=== PATIENT | female | born 1985 | race Caucasian/White ===

== ENCOUNTER 2017-02-11 22:04 | Emergency (ER) | payer MEDICAID ==
[~2017-02-11] VITALS: Ht 157.5 cm; Wt 65.8 kg
[2017-02-11 22:26] VITALS: BP 147/90
[2017-02-12] MEDS: IBUPROFEN 600 MG TAB PO ONE (00:08)
== END 2017-02-12 00:26 | disposition home or self-care (01) ==
LOC: ER 22:06
DX: S13.9XXA Sprain of joints and ligaments of unspecified parts of neck, initial encounter (principal); M79.1 Myalgia; F12.10 Cannabis abuse, uncomplicated; F17.210 Nicotine dependence, cigarettes, uncomplicated; V49.59XA Passenger injured in collision with other motor vehicles in traffic accident, initial encounter; Y93.89 Activity, other specified; Y99.8 Other external cause status; Y92.411 Interstate highway as the place of occurrence of the external cause
CPT/HCPCS: 72040

== ENCOUNTER 2023-08-07 11:44 | Emergency (ER) | payer MEDICAID ==
[~2023-08-07] VITALS: Ht 160 cm; Wt 71.3 kg
[2023-08-07 11:58] VITALS: BP 168/87; PULSE 66; RESP 18; O2SAT 99
[2023-08-07] MEDS ORDERED: BACL10TA PO (13:50)
== END 2023-08-07 13:58 | disposition home or self-care (01) ==
LOC: ER 11:44
DX: S53.402A Unspecified sprain of left elbow, initial encounter (principal); F17.210 Nicotine dependence, cigarettes, uncomplicated; Z79.899 Other long term (current) drug therapy; V19.9XXA Pedal cyclist (driver) (passenger) injured in unspecified traffic accident, initial encounter; Y93.89 Activity, other specified; Y92.89 Other specified places as the place of occurrence of the external cause; Y99.8 Other external cause status
CPT/HCPCS: 73080